=== PATIENT | male | born 1995 | race Caucasian/White ===

== ENCOUNTER 2020-12-24 17:07 | Emergency (ER) | payer OTHER, SELFPAY ==
[2020-12-24 17:20] VITALS: BP 136/81; PULSE 68; RESP 16; TEMP 37.2; O2SAT 100; BMI 24.3
--- NOTE | 2020-12-24 17:24 | DI.RAD.S_ITS ---
PROCEDURE: XR SHOULDER LT MIN 2V INDICATIONS: injured doing pushups TECHNIQUE: 3 views of the shoulder were acquired. COMPARISON: None. FINDINGS: Bones: No fractures or dislocations. No suspicious bony lesions. Visualized ribs appear intact. Soft tissues: No suspicious soft tissue calcifications. IMPRESSION: No visualized acute fracture or dislocation. However, if clinical concern and/or pain persist, short interval imaging followup in 7-10 days is recommended, as occult injury cannot be definitively excluded. Dictated by: Myra Gardiner M.D. on 12/24/2020 at 18:38 Approved by: Myra Gardiner M.D. on 12/24/2020 at 18:38
--- NOTE | 2020-12-24 19:35 | ED_ITS ---
HPI - Extremity Injury (Upper) General Chief Complaint: Extremity Injury, Upper Stated Complaint: lt shoulder pain Time Seen by Provider: 12/24/20 19:34 History of Present Illness HPI narrative: Otherwise healthy 25-year-old gentleman who presents with acute left anterior shoulder pain. He notes that about a week ago while doing a bench press he felt some pulling tearing and pain in the posterior portion of the shoulder so much so that he was not able to finish his workout. He has been trying to allow them to heal over this week in today for work needed to do a fitness test with his many pushups as he is able to complete into minutes. He began noticing pain at about 27 and continued beyond that. He comes in now with significant pain and fullness in the anterior shoulder and significantly limited range of motion. He describes no numbness and tingling down his arm no other injuries or concerns. Review of Systems Review of Systems Narrative: Remainder of complete review of systems is otherwise unremarkable except for that included in the HPI. Exam Narrative Exam Narrative: General: Alert appropriate in mild distress Respiratory: Able to speak in full sentences, no obvious respiratory distress Skin: No obvious rashes, warm and dry Neurologic: Grossly intact no obvious asymmetries or abnormalities Psych: appropriate insight and affect, cooperative Extremity: Left shoulder is examine. Arm is held in adduction for comfort. He has significant pain with any abduction and is unable to extend the arm secondary to pain. If the upper arm stabilize he has no elbow or wrist pain. He is neurovascularly intact. There is some fullness over the anterior shoulder without obvious contusion or hematoma. Initial Vital Signs Initial Vital Signs: Vital Signs Temperature 98.9 F 12/24/20 17:20 Pulse Rate 68 12/24/20 17:20 Respiratory Rate 16 12/24/20 17:20 Blood Pressure 136/81 12/24/20 17:20 Pulse Oximetry 100 12/24/20 17:20 Procedures Orthopedic Splinting/Casting Left sling: Time of procedure: 20:26 Side: left Upper Extremity Injury Location: shoulder Upper Extremity Immobilizer: sling/shoulder immobilizer Post splinting neuro exam: intact Post splinting vascular exam: intact Placed by: Nursing Course Orders Ordered: ED Orders 12/24/20 17:24 XR shoulder LT min 2V Stat Discontinued Medications Ketorolac Tromethamine (Ketorolac 30 Mg/Ml Vial) 30 mg IM NOW ONE Stop: 12/24/20 20:18 Last Admin: 12/24/20 20:21 Dose: 30 mg Documented by: Vital Signs Vital signs: Vital Signs - 8 hr 12/24/20 17:20 Temperature 98.9 F Pulse Rate 68 Respiratory Rate 16 Blood Pressure 136/81 Pulse Oximetry 100 MDM - Extremity Injury (Upper) Imaging Data X-ray shoulder: Radiologist's Impression: FINDINGS: Bones: No fractures or dislocations. No suspicious bony lesions. Visualized ribs appear intact. Soft tissues: No suspicious soft tissue calcifications. IMPRESSION: No visualized acute fracture or dislocation. However, if clinical concern and/or pain persist, short interval imaging followup in 7-10 days is recommen ded, as occult injury cannot be definitively excluded. Dictated by: Myra Gardiner M.D. on 12/24/2020 at 18:38 MDM Narrative Medical decision making narrative: 25-year-old healthy gentleman with what clinically appears to be at least a partial rotator cuff tear in the left sign. He is placed in a sling for comfort recommended ibuprofen, Tylenol ice and orthopedic follow-up for definitive treatment. Suspect he will need advanced imaging for further diagnosis. Questions are answered and he is safe for home discharge Discharge Plan Departure Patient Disposition: Home Clinical Impression: Rotator cuff disorder Qualifiers: Laterality: left Qualified Code(s): M67.912 - Unspecified disorder of synovium and tendon, left shoulder Instructions: DI for Rotator Cuff Injury Activity Restrictions/Additional Instructions: Thank you for coming in today Your exam suggests that you have torn at least part of the rotator cuff on the left side. The x-rays do not show any bony injury. You likely are going to hurt more tomorrow. Please use the sling to help reduce pain, ice to the front of the shoulder will help with the swelling and using 400 mg of ibuprofen (2 [id number] pills) and 1 Tylenol every 6 hours can be very helpful in controlling pain. Please call [facility] tomorrow so at [phone] schedule a follow-up appointment for evaluation and definitive treatment of a suspected rotator cuff tear. I hope you heal quickly and completely Referrals: Andre Gloria MD [Physician] -
[2020-12-24] MEDS: KETOROLAC 30 MG/ML VIAL IM (20:21)
[2020-12-24 20:35] VITALS: BP 130/78; PULSE 78; RESP 20; O2SAT 100
== END 2020-12-24 20:37 | disposition home or self-care (01) ==
PROVIDERS: Emergency Provider Emergency Medicine
DX: S46.092A Other injury of muscle(s) and tendon(s) of the rotator cuff of left shoulder, initial encounter (principal); X50.0XXA Overexertion from strenuous movement or load, initial encounter
CPT/HCPCS: 73030; 96372; 99283; J1885

== ENCOUNTER → 2022-01-04 13:18 | Outpatient (CLI) | payer OTHER, SELFPAY ==
--- NOTE | 2022-01-04 | DI.MRI.S_ITS ---
PROCEDURE: MR HIP LT W CON INDICATIONS: Pain left hip TECHNIQUE: After the administration of 10 mL of dilute intra-articular Gadolinium contrast, coronal STIR of the bony pelvis; coronal and oblique axial T1 spin echo with fat saturation, axial T2 fast spin echo with fat saturation, sagittal T1 spin echo with and without fat saturation of the involved hip. COMPARISON: [facility], , [place] HIP INJECTION MR/CT LT, 01/04/2022, 13:51. FINDINGS: Image quality: Excellent. Image quality: Excellent. Bones and joints: Bone marrow of the pelvic ring and proximal femurs show normal signal throughout. No intraosseous lesions or fractures. No avascular necrosis of the femoral heads. The visualized lower lumbar spine appears normally aligned. Tendons and ligaments: The gluteus medius and minimus tendons appear intact, without associated muscle atrophy. The proximal iliotibial band appears intact. The iliopsoas tendon appears intact, without adjacent bursal fluid collections. The origin of the hamstring tendon is intact at the ischial tuberosity. The direct and indirect heads of the rectus femoris muscle origin appear intact. Labrum and cartilage: No uptake of intra-articular contrast material is seen within the acetabular labrum to suggest a labral tear. No focal cartilage defect in the left hip. There is normal morphology of the femoral head and the acetabulum. Soft tissues: Visualized muscles demonstrate normal bulk and internal signal. Quadratus femoris muscle demonstrates no internal edema to suggest ischiofemoral impingement. The proximal sciatic neurovascular bundle appears intact. The included portions of the pelvis demonstrate no acute abnormality. IMPRESSION: Intact acetabular labrum. No cartilage defect is seen in the left hip. No significant abnormality is seen to account for the reported left hip pain. Dictated by: Charli Keys M.D. on 01/04/2022 at 20:37 Approved by: Charli Keys M.D. on 01/04/2022 at 20:45
--- NOTE | 2022-01-04 | DI.RAD.S_ITS ---
PROCEDURE: [place] HIP INJECTION MR/CT LT INDICATIONS: Pain left hip TECHNIQUE: The indications, alternatives, benefits, risks, and complications of the procedure were explained to the patient. Written informed consent was obtained and placed in the chart. The hip was examined fluoroscopically with the legs fixed in slight internal rotation, and a site for needle placement chosen for entry into the hip joint from an anterior approach. Care was taken to locate the common femoral artery and vein beforehand. The skin was prepped and draped in a sterile fashion, and 1% Lidocaine infiltrated from skin down to joint capsule. A spinal needle was inserted into the joint, and a small amount of iodinated contrast media injected to confirm intra-articular placement of the needle tip. This was followed by approximately 10 mL dilute solution of a gadolinium containing MR contrast agent. The needle was removed and a dressing was applied. The patient was given postprocedural instructions and sent to the MR suite for imaging. COMPARISON: None. FINDINGS: A single fluoroscopic spot image demonstrates intra-articular location of injected iodinated contrast. IMPRESSION: Successful fluoroscopically guided administration of dilute Gadolinium solution into the hip joint for MR arthrogram. Dictated by: Charli Keys M.D. on 01/04/2022 at 14:51 Approved by: Charli Keys M.D. on 01/04/2022 at 14:52
== END ==
PROVIDERS: PCP Student in an Organized Health Care Education/Training Program; Referring Provider Student in an Organized Health Care Education/Training Program; Visit Provider Student in an Organized Health Care Education/Training Program
DX: M25.552 Pain in left hip (principal)
CPT/HCPCS: 27093; 73722; 77002

== ENCOUNTER 2022-09-12 11:39 | Emergency (ER) | payer OTHER, SELFPAY ==
[2022-09-12 11:47] VITALS: BP 146/77; PULSE 73; RESP 17; TEMP 36.6; O2SAT 99; BMI 27.5
--- NOTE | 2022-09-12 12:32 | ED_ITS ---
HPI - Head Injury <Bj Menon PA-C - Last Filed: 09/12/22 12:43> General Chief complaint: Head Injury Stated complaint: sent by DAVID barcenas concussion Time Seen by Provider: 09/12/22 12:09 Source: patient Mode of arrival: Ambulatory History of Present Illness HPI Narrative: 27-year-old male with no reported past medical history presents to the ED status post a closed head injury sustained 2 days prior to arrival. Patient states that he was struck by someone's shoulder on the left frontal side of his head during rugby. Patient states that he felt like he lost consciousness for less than a second. patient denies any other injuries. Since then, patient states that he has had a generalized overall headache, nausea, increased somnolence. Patient also had some initial photophobia and phonophobia which has since resolved. Patient denies fever, chills, neck pain, neck stiffness, vomiting, chest pain, shortness of breath, cough, abdominal pain, lightheadedness, dizziness, syncope. Related Data Home Medications Medication Instructions Recorded Confirmed No Known Home Medications 09/12/22 09/12/22 Allergies Allergy/AdvReac Type Severity Reaction Status Date / Time No Known Drug Allergies Allergy Verified 09/12/22 11:49 Review of Systems <Bj Menon PA-C - Last Filed: 09/12/22 12:43> Review of Systems ROS Unobtainable: All systems reviewed & are unremarkable except as noted in HPI and below Constitutional Constitutional: Denies chills, Reports daytime sleepiness, Reports fatigue, Denies fever(s), Denies frequent falls, Reports headache(s), Denies lethargy and Denies weakness Eyes Eyes: Denies change in vision, Denies eye discharge, Denies irritation, Denies loss of vision and Reports photophobia ENT Ears, Nose, Mouth, and Throat: Denies change in voice, Denies dizziness, Reports headache(s), Denies neck pain, Denies sore throat and Denies throat swelling Cardiovascular Cardiovascular: Denies chest pain, Denies irregular heart rhythm, Denies lightheadedness, Denies palpitations, Denies dyspnea, Denies dyspnea on exertion and Denies orthopnea Respiratory Respiratory: Denies cough, Denies dyspnea, Denies dyspnea on exertion and Denies wheezing Gastrointestinal Gastrointestinal: Denies abdominal pain, Denies change in bowel habits, Denies diarrhea, Reports nausea and Denies vomiting Genitourinary Genitourinary: Denies hematuria, Denies flank pain, Denies urinary incontinence and Denies urinary urgency Musculoskeletal Musculoskeletal: Denies back pain, Denies muscle weakness, Denies neck pain, Denies numbness and Denies tingling Integumentary/Breasts Skin/Breast: Denies pruritus, Denies erythema, Denies rash and Denies wounds Neurologic Neurologic: Denies behavioral changes, Denies confusion, Denies dizziness, Denies frequent falls, Reports headache(s), Denies loss of vision, Denies numbness, Denies tingling and Denies weakness Psychiatric Psychiatric: Denies anxiety, Denies behavioral changes, Denies confusion, Denies depression, Denies homicidal ideation and Denies suicidal ideation Endocrine Endocrine: Reports fatigue, Denies flushing and Denies palpitations Hematologic/Lymphatic Hematologic/Lymphatic: Denies easy bruising Allergic/Immunologic Allergic/Immunologic: Denies urticaria, Denies throat swelling and Denies wheezing Patient History <Bj Menon PA-C - Last Filed: 09/12/22 12:43> Social History Smoking Status: Never smoker Smoking Status: Never smoker alcohol intake frequency: other Substance Use Type: does not use Exam <Bj Menon PA-C - Last Filed: 09/12/22 12:43> Narrative Exam Narrative: Const General:?cooperative, healthy appearing and comfortable [facility] Head:?normal to inspection; left front forehead somewhat tender to palpation, however no skull depressions, hematoma Ears:?hearing grossly normal bilaterally Nose:?external nose normal Face and sinus:?normal facial exam and sinuses nontender Mouth:?oral mucosae normal Throat:?posterior oropharynx normal Eyes General:?appearance normal, both eyes and all related structures Neck Neck:?normal visual inspection and no lymphadenopathy noted Resp Effort & Inspection:?normal respiratory effort Auscultation:?clear to auscultation bilaterally Cardio Rate:?regular rate Rhythm:?regular rhythm Neuro General:?patient alert, patient awake and patient oriented x3; PERRLA; gait is normal; CN 1 through 12 intact bilaterally Initial Vital Signs Initial Vital Signs: Vital Signs Temperature 98 F 09/12/22 11:47 Pulse Rate 73 09/12/22 11:47 Respiratory Rate 17 09/12/22 11:47 Blood Pressure 146/77 H 09/12/22 11:47 Pulse Oximetry 99 09/12/22 11:47 Oxygen Delivery Method Room Air 09/12/22 11:47 <Ridge Blackburn DO - Last Filed: 09/12/22 13:01> Initial Vital Signs Initial Vital Signs: Vital Signs Temperature 98 F 09/12/22 11:47 Pulse Rate 73 09/12/22 11:47 Respiratory Rate 17 09/12/22 11:47 Blood Pressure 146/77 H 09/12/22 11:47 Pulse Oximetry 99 09/12/22 11:47 Oxygen Delivery Method Room Air 09/12/22 11:47 Course <Bj Menon PA-C - Last Filed: 09/12/22 12:43> Vital Signs Vital signs: Vital Signs - 8 hr 09/12/22 11:47 09/12/22 12:46 Temperature 98 F Pulse Rate 73 75 Respiratory Rate 17 Blood Pressure 146/77 H 142/61 H Pulse Oximetry 99 98 Oxygen Delivery Method Room Air Room Air <Ridge Blackburn DO - Last Filed: 09/12/22 13:01> Vital Signs Vital signs: Vital Signs - 8 hr 09/12/22 11:47 09/12/22 12:46 Temperature 98 F Pulse Rate 73 75 Respiratory Rate 17 Blood Pressure 146/77 H 142/61 H Pulse Oximetry 99 98 Oxygen Delivery Method Room Air Room Air MDM - Head Injury <MITCH Quiros Last Filed: 09/12/22 12:43> MDM Narrative Medical decision making narrative: 27-year-old male with no reported past medical history presents to the ED status post a closed head injury sustained 2 days prior to arrival. physical exam is reassuring and patient appears neurologically intact. Patient's symptoms likely due to a concussion. Discussed concussion and associated symptoms with patient. recommend cognitive and physical rest, prompt PCP follow-up to continue monitoring symptoms. Patient agrees to follow-up with his PCP as soon as possible. Patient declined Zofran, will follow-up with PCP if he continues to feel nauseous. ED return precautions were discussed with patient. Patient verbalized understanding. Discharge Plan Departure Patient Disposition: Home Clinical Impression: Concussion Instructions: Concussion, DI for Closed Head Injury Activity Restrictions/Additional Instructions: You were evaluated in the ED today for a head injury. Your physical exam is reassuring, you appear neurologically intact. Your symptoms are consistent with a concussion. It is common to experience headaches, nausea, few episodes of vomiting, sensitivity to light and sound, blurry vision, sleepiness, fatigue, depression, agitation. You may take Tylenol for the headaches. We recommend cognitive and physical rest to best recover from a concussion. This includes avoiding strenuous physical activities, use of phones, laptops, computers, [place]. please follow-up with your PCP as soon as possible for further monitoring of your symptoms. Return to the ED if your symptoms worsen, you are persistently vomiting, your confused. Prescriptions: No Action No Known Home Medications Referrals: Ridge Curiel [Primary Care Provider] - Stand Alone Forms: Patient Portal/API, Work Release Note <Ridge Blackburn DO - Last Filed: 09/12/22 13:01> Cosign ED Attending Cosignature Attestation: Dr Blackburn Co-Sign Statement: I was available for consultation during this patient's emergency department visit. This chart is signed by myself for administrative purposes only. I did not have direct contact with this patient during this visit. They were seen independently by the APC.
[2022-09-12 12:46] VITALS: BP 142/61; PULSE 75; O2SAT 98
== END 2022-09-12 12:47 | disposition home or self-care (01) ==
PROVIDERS: Emergency Provider Student in an Organized Health Care Education/Training Program; PCP Student in an Organized Health Care Education/Training Program
DX: S06.0XAA Concussion with loss of consciousness status unknown, initial encounter (principal); W50.0XXA Accidental hit or strike by another person, initial encounter
CPT/HCPCS: 99282; 99283

== ENCOUNTER 2023-01-12 21:36 | Emergency (ER) | payer OTHER, SELFPAY ==
[2023-01-12] VITALS (7 sets, daily range): BP systolic 129–136; BP diastolic 73–95; PULSE 74–79; RESP 20; TEMP 37.1; O2SAT 98–100
--- NOTE | 2023-01-12 21:47 | ED_ITS ---
HPI - General Adult General Chief complaint: Allergic Reaction Stated complaint: bee sting - reaction Time Seen by Provider: 01/12/23 21:46 Source: patient Mode of arrival: Ambulatory Limitations: no limitations History of Present Illness HPI narrative: Patient is a 27-year-old male who prior to arrival was stung on his left hand. He states that he is never been stung before. Since that time he is developed what he thinks his some problems swallowing. No vomiting. He does have some swelling to the area around his left hand. No problems breathing. Related Data Home Medications Medication Instructions Recorded Confirmed No Known Home Medications 09/12/22 09/12/22 Allergies Allergy/AdvReac Type Severity Reaction Status Date / Time No Known Drug Allergies Allergy Verified 09/12/22 11:49 Review of Systems Constitutional Constitutional: Reports system reviewed and no additional complaints, except as documented Integumentary/Breasts Skin/Breast: Reports system reviewed and no additional complaints, except as documented Neurologic Neurologic: Reports system reviewed and no additional complaints, except as documented Patient History Social History Smoking Status: Never smoker Smoking Status: Never smoker alcohol intake frequency: other Substance Use Type: does not use Exam Initial Vital Signs Initial Vital Signs: Vital Signs Temperature 98.8 F 01/12/23 21:46 Pulse Rate 79 01/12/23 21:46 Respiratory Rate 20 01/12/23 21:46 Blood Pressure 136/91 H 01/12/23 21:46 Pulse Oximetry 99 01/12/23 21:46 Oxygen Delivery Method Room Air 01/12/23 21:46 Const General: cooperative, comfortable and No ill appearing [facility] Head: normal to inspection and normocephalic Mouth: oral mucosae normal and lip normal Throat: posterior oropharynx normal GI Inspection: normal to inspection and non-distended Skin Other: No urticaria noted Neuro General: patient alert, patient awake and moves all extremities Extrem General: capillary refill normal Course Orders Ordered: Discontinued Medications Diphenhydramine HCl (Diphenhydramine 50 Mg/Ml Vial) 25 mg IV NOW ONE Stop: 01/12/23 21:48 Last Admin: 01/12/23 21:55 Dose: 25 mg Documented By: JENNIFER Methylprednisolone (Methylprednisolone 125 Mg/2 Ml Vial) 125 mg IV NOW ONE Stop: 01/12/23 21:48 Last Admin: 01/12/23 21:55 Dose: 125 mg Documented By: JENNIFER Vital Signs Vital signs: Vital Signs - 8 hr 01/12/23 21:48 01/12/23 21:49 01/12/23 21:49 Temperature Pulse Rate 79 Respiratory Rate Blood Pressure 136/91 H Pulse Oximetry 99 99 Oxygen Delivery Method 01/12/23 22:00 01/12/23 22:00 01/12/23 21:46 Temperature 98.8 F Pulse Rate 78 79 Respiratory Rate 20 Blood Pressure 135/75 136/91 H Pulse Oximetry 100 99 Oxygen Delivery Method Room Air 01/12/23 22:30 01/12/23 22:30 01/12/23 22:59 Temperature Pulse Rate 74 74 Respiratory Rate Blood Pressure 129/73 Pulse Oximetry 100 98 Oxygen Delivery Method Room Air Room Air 01/12/23 23:00 Temperature Pulse Rate Respiratory Rate Blood Pressure 129/95 H Pulse Oximetry Oxygen Delivery Method Medical Decision Making MDM Narrative Medical decision making narrative: Patient does have some swelling to his left hand but no visible mucosal involvement noted. Was given steroids and Benadryl. His symptoms completely resolved. Is observed for period of time without any progression of the disease. Will discharge patient home with instructions he can take Benadryl if needed. Expressed understanding and agreement. Discharge Plan Departure Patient Disposition: Home Clinical Impression: Bee sting reaction Instructions: DI for Insect Bites and Stings Activity Restrictions/Additional Instructions: You can take 25 mg of Benadryl every 6 hours as needed. Return to the emergency department for new or worsening symptoms. Prescriptions: No Action No Known Home Medications Referrals: Ridge Curiel [Primary Care Provider] - Stand Alone Forms: Patient Portal/API
[2023-01-12] MEDS: diphenhydrAMINE 50 MG/ML VIAL 25 MG IV (21:55)
[2023-01-12] MEDS: methylPREDNISolone 125 MG/2 ML VIAL IV (21:55)
== END 2023-01-12 23:07 | disposition home or self-care (01) ==
PROVIDERS: Emergency Provider Emergency Medicine; PCP Student in an Organized Health Care Education/Training Program
DX: T63.441A Toxic effect of venom of bees, accidental (unintentional), initial encounter (principal); R13.10 Dysphagia, unspecified
CPT/HCPCS: 96374; 96375; 99283; 99284; J1200; J2930

== ENCOUNTER 2023-05-04 07:29 | Emergency (ER) | payer OTHER, SELFPAY ==
[2023-05-04 07:34] VITALS: BP 140/85; PULSE 89; RESP 18; TEMP 36.7; O2SAT 99; BMI 24.2
--- NOTE | 2023-05-04 07:46 | ED.SKABFB ---
HPI - Skin/Abscess/Foreign Bdy General Chief complaint: Skin/Abscess/Foreign Body Stated complaint: Lump in Left Breast, painful Time Seen by Provider: 05/04/23 07:45 Source: patient Mode of arrival: Family Vehicle Limitations: no limitations History of Present Illness HPI narrative: Patient here with complaints of left areola/nipple pain and redness. This started last night. They did take a picture and presented it here. Today it is less red. But however welding machine tender/painful. No discharge. No injury to this area. No piercing. No plaquing of the hair. No family history of breast cancer or disease. No discharge from the nipple. Related Data Previous Rx's Medication Instructions Recorded doxycycline monohydrate 100 mg 100 mg PO BID #14 caps 05/04/23 capsule Allergies Allergy/AdvReac Type Severity Reaction Status Date / Time No Known Drug Allergies Allergy Verified 05/04/23 07:40 Review of Systems Review of Systems Narrative: GENERAL: negative chills, fatigue, malaise, fever, sweats. HEENT: negative sinus pain, ear pain, sore throat RESPIRATORY: negative dyspnea, cough CARDIOVASCULAR: negative chest pain, palpitations GASTROINTESTINAL: negative nausea, vomiting, abdominal pain : negative dysuria, frequency, hematuria MUSCULOSKELETAL: negative muscle or bony pain SKIN: negative rash, positive skin lesions NEUROLOGIC: negative weakness, numbness ROS Unobtainable: All systems reviewed & are unremarkable except as noted in HPI and below Patient History Social History Smoking Status: Never smoker Smoking Status: Never smoker tobacco type: vaping alcohol intake frequency: holidays/special occasions only Substance Use Type: does not use Exam Narrative Exam Narrative: GENERAL: in no distress, not toxic not dyspneic HEAD: Normocephalic. EYES: Pupils equal round ENT: Mucous membranes moist. NECK: Trachea midline. NEURO: AOx4. SKIN: Warm and dry, examination left breast, grossly symmetric to the right breast. There is tenderness to the 12:00 p.m. to the 3 o'clock position, this is at the areola. There is mild mild erythema. No induration. No fluctuance. No nipple discharge. No axillary lymphadenopathy. No other mass or lumps palpable on the left breast. PSYCH: Not anxious, is cooperative Initial Vital Signs Initial Vital Signs: Vital Signs Temperature 98.1 F 05/04/23 07:34 Pulse Rate 89 05/04/23 07:34 Respiratory Rate 18 05/04/23 07:34 Blood Pressure 140/85 05/04/23 07:34 Pulse Oximetry 99 05/04/23 07:34 Oxygen Delivery Method Room Air 05/04/23 07:34 Course Orders Ordered: Discontinued Medications Doxycycline Hyclate (Doxycycline Hyclate 100 Mg Tablet) 100 mg PO NOW ONE Stop: 05/04/23 07:46 Last Admin: 05/04/23 07:57 Dose: 100 mg Documented By: NUNO Ibuprofen (Ibuprofen 400 Mg Tablet) 800 mg PO NOW ONE Stop: 05/04/23 07:46 Last Admin: 05/04/23 07:58 Dose: 800 mg Documented By: NUNO Vital Signs Vital signs: Vital Signs - 8 hr 05/04/23 07:34 Temperature 98.1 F Pulse Rate 89 Respiratory Rate 18 Blood Pressure 140/85 Pulse Oximetry 99 Oxygen Delivery Method Room Air MDM - Skin/Abscess/Foreign Bdy MDM Narrative Medical decision making narrative: Patient 82-year-old female history of diabetes, hypertension, anemia with recent blood transfusion presents today with vomiting of bright red blood. She reports that she woke up around 330 this morning she did not feel very good she proceeded to vomit a couple of times with bright red blood and some blood clots. She reports that she is had some dark stool as well. She is taking aspirin daily she has no abdominal pain. She denies any chest pain or shortness of breath. EMS reports that her blood pressure initially was in the 140s and has decreased slightly to the 110s but she is not tachycardic. She is covered with bright-red blood all over the front of her Records from [facility] April 24 have been reviewed. At that time she went to the ED concern for CVA she was found to be weak hyperglycemic and facial droop. She however was found to be anemic with a hemoglobin of 6.8 and hematocrit 21.2 she would a BUN of 66 and a creatinine of 1.3. She was boarding in the ED transfused to units of blood. Surgery was contacted but stated given her advanced age unlikely to [employer] administrator the patient later decided to go home she would repeat CBC and was discharged with a hemoglobin of 9.8 After history and exam no laboratory studies imaging indicated at this time. Approved for outpatient ultrasound or mammography. Doxycycline and ibuprofen ordered. MDM CC: Left nipple pain Complicating co-morbidities: None Data collected from: Patient Medical records reviewed: No previous visit for this complaint Differential considered: Includes but not limited to mastitis/cellulitis/abscess/carcinoma Exam documented above, pertinent findings include: Tender areola Lab Test results independently reviewed as above. Pertinent findings: None indicated Treatments: Doxycycline ibuprofen Re-evaluations: Reviewed with patient physical findings. Does agree understand can have outpatient imaging done. Agrees with prescription antibiotics. Return precautions reviewed. He desires discharge home Discussion: Appropriate for discharge home. Exam is reassuring. Patient may have outpatient imaging if needed. Clinically mastitis. Uncertain source at this time. Doxycycline has been started. He does have good follow up. Return precautions reviewed. He desires discharge home Diagnosis: Mastitis Discharge Plan Departure Patient Disposition: Home Clinical Impression: Acute mastitis of left breast Instructions: DI for Mastitis Activity Restrictions/Additional Instructions: Please contact your primary care provider to schedule for outpatient mammogram or ultrasound. Prescription medication antibiotics have been sent to your pharmacy to continue. Please do read literature regarding mastitis. May continue ibuprofen for pain. May use warm compresses 20 minutes at a time as needed for pain or swelling. Return if worse if any questions or concerns Prescriptions: New doxycycline monohydrate 100 mg capsule 100 mg PO BID Qty: 14 0RF Referrals: Ridge Curiel [Primary Care Provider] - Stand Alone Forms: Patient Portal/API
[2023-05-04] MEDS: DOXYCYCLINE HYCLATE 100 MG TABLET PO (07:57)
[2023-05-04] MEDS: IBUPROFEN 400 MG TABLET 800 MG PO (07:58)
== END 2023-05-04 08:10 | disposition home or self-care (01) ==
PROVIDERS: Emergency Provider Emergency Medicine; PCP Student in an Organized Health Care Education/Training Program
DX: N61.0 Mastitis without abscess (principal)
CPT/HCPCS: 99283

== ENCOUNTER 2024-03-30 12:27 | Emergency (ER) | payer OTHER, SELFPAY ==
[2024-03-30 12:30] VITALS: BP 126/78; PULSE 81; RESP 16; TEMP 36.7; O2SAT 97; BMI 24.9
[2024-03-30] MEDS: FLUORESCEIN 1 MG STRIP EYE-LEFT (12:55)
[2024-03-30] MEDS: PROPARACAINE 0.5% OPHTH SOL 1 DROPS EYE-LEFT (12:55)
--- NOTE | 2024-03-30 14:03 | ED_ITS ---
HPI - Eye Problem <David Vann PA-C - Last Filed: 03/30/24 14:14> General Chief complaint: Eye Problems Stated complaint: left eye injury Time Seen by Provider: 03/30/24 12:36 Source: patient Mode of arrival: Ambulatory History of Present Illness HPI Narrative: This patient is a 28-year-old male that presents today for a scratch to the left lower area of the left eye. This was apparently accidentally done by his dog. This apparently occurred this morning prior to his arrival. He denies any previous injury to the eye. No treatments have been tried for this. His tetanus status is up-to-date. Patient denies foreign body sensation. He did not take Tylenol or ibuprofen or Aleve prior to his arrival. He denies any drainage from the eye, pain with extra-ocular movements, retro-orbital pain or periorbital pain. Related Data Previous Rx's Medication Instructions Recorded doxycycline monohydrate 100 mg 100 mg PO BID #14 caps 05/04/23 capsule ketorolac 0.5 % eye drops 2 drp EYE-LEFT Q6H PRN pain 5 days 03/30/24 #10 mL moxifloxacin 0.5 % eye drops 1 drp EYE-LEFT TID 7 days #3 mL 03/30/24 moxifloxacin 0.5 % eye drops 1 drp ophthalmic (eye) TID 7 days 03/30/24 #3 mL Allergies Allergy/AdvReac Type Severity Reaction Status Date / Time No Known Drug Allergies Allergy Verified 03/30/24 12:30 Review of Systems <David Vann PA-C - Last Filed: 03/30/24 14:14> Review of Systems Narrative: General: See HPI HEENT: See HPI All other review of systems have been reviewed and ultimately negative unless otherwise stated in the HPI. Patient History <David Vann PA-C - Last Filed: 03/30/24 14:14> Social History Smoking Status: Never smoker Smoking Status: Never smoker tobacco type: vaping alcohol intake frequency: holidays/special occasions only Substance Use Type: does not use Exam <David Vann PA-C - Last Filed: 03/30/24 14:14> Initial Vital Signs Initial Vital Signs: Vital Signs Temperature 98.0 F 03/30/24 12:30 Pulse Rate 81 03/30/24 12:30 Respiratory Rate 16 03/30/24 12:30 Blood Pressure 126/78 03/30/24 12:30 Pulse Oximetry 97 03/30/24 12:30 Oxygen Delivery Method Room Air 03/30/24 12:30 Const General: cooperative, healthy appearing, comfortable, well developed and well groomed [facility] Head: normal to inspection, normocephalic and atraumatic Ears: hearing grossly normal bilaterally and external ears normal Nose: external nose normal and nares normal Face and sinus: normal facial exam Mouth: oral mucosae normal Eyes General: Yes appearance normal, both eyes and all related structures Visual Montano: normal visual montano by confrontation Alignment and Position: alignment normal and position normal Periorbital: periorbital findings normal Eyelids: eyelids normal Conjunctivae: conjunctivae normal Sclera: scleral abnormality (Abrasion noted at the 5 o'clock position) Cornea: corneas normal and fluorescein used Pupils: PERRL, normal by confrontation and accommodation normal EOM: EOM intact bilaterally Neck Neck: normal visual inspection, full ROM and no meningeal signs Resp Effort & Inspection: normal respiratory effort and able to speak in complete sentences Auscultation: clear to auscultation bilaterally Cardio Rate: regular rate Rhythm: regular rhythm Heart Sounds: S1 normal and S2 normal Back/Spine/Pelvis Back: normal to inspection Skin General: no rashes or lesions noted, elasticity normal and turgor normal Neuro General: patient alert, patient awake, patient oriented x3, gait normal, moves all extremities and CN's II-XI intact bilaterally Extrem General: normal to inspection, full ROM and capillary refill normal Psych Appearance: grossly normal and well kempt <Asuncion Cantor DO - Last Filed: 03/31/24 07:35> Initial Vital Signs Initial Vital Signs: Vital Signs Temperature 98.0 F 03/30/24 12:30 Pulse Rate 81 03/30/24 12:30 Respiratory Rate 16 03/30/24 12:30 Blood Pressure 126/78 03/30/24 12:30 Pulse Oximetry 97 03/30/24 12:30 Oxygen Delivery Method Room Air 03/30/24 12:30 Course <David Vann PA-C - Last Filed: 03/30/24 14:14> Course Course Narrative: Patient was seen and examined. Proparacaine was placed into the left eye. Visual acuity was performed by nursing staff. Please refer to their notation regarding these results. The patient then underwent fluorescein staining which revealed the abrasion at the sclera on the left. There was no corneal invo lvement. Patient was notified of the negative findings. The eye was then irrigated thoroughly by nursing staff. Patient was prepped for discharge home. He will be placed on moxifloxacin drops as well as ketorolac eyedrops for any breakthrough pain. Patient understands the treatment plan. No additional questions at the time of discharge and he will follow up as requested. Orders Ordered: Discontinued Medications Fluorescein Sodium (Fluorescein 1 Mg Strip) 1 mg EYE-LEFT NOW ONE Stop: 03/30/24 12:35 Last Admin: 03/30/24 12:55 Dose: 1 mg Documented By: SPF Proparacaine HCl (Proparacaine 0.5% Ophth [place]) 1 drops EYE-LEFT PRN PRN PRN Reason: Pain, Moderate (4-6) Last Admin: 03/30/24 12:55 Dose: 1 drop Documented By: SPF Vital Signs Vital signs: Vital Signs - 8 hr 03/30/24 12:30 Temperature 98.0 F Pulse Rate 81 Respiratory Rate 16 Blood Pressure 126/78 Pulse Oximetry 97 Oxygen Delivery Method Room Air <Asuncion Cantor DO - Last Filed: 03/31/24 07:35> Orders Ordered: Discontinued Medications Fluorescein Sodium (Fluorescein 1 Mg Strip) 1 mg EYE-LEFT NOW ONE Stop: 03/30/24 12:35 Last Admin: 03/30/24 12:55 Dose: 1 mg Documented By: SPF Proparacaine HCl (Proparacaine 0.5% Ophth [place]) 1 drops EYE-LEFT PRN PRN PRN Reason: Pain, Moderate (4-6) Last Admin: 03/30/24 12:55 Dose: 1 drop Documented By: SPF Vital Signs Vital signs: Vital Signs - 8 hr 03/30/24 12:30 Temperature 98.0 F Pulse Rate 81 Respiratory Rate 16 Blood Pressure 126/78 Pulse Oximetry 97 Oxygen Delivery Method Room Air MDM - Eye Problem <David Vann PA-C - Last Filed: 03/30/24 14:14> Differential Diagnosis Differential diagnosis: Likely corneal abrasion, acute iritis, corneal ulcer, ruptured globe and other (Scleral abrasion) Medical Records Attestation: I reviewed the patient's medical records. MDM Narrative Medical decision making narrative: At this time, the patient has no other involvement of the eye from an abrasion standpoint except for the sclera at the 5 o'clock position. There is no visible foreign body. The patient does not appear to have a ruptured globe. I do not believe he has some type of glaucoma. The patient will be started on the medications as previously stated. There are no additional questions at the time of discharge and he will follow up as requested. Discharge Plan Departure Patient Disposition: Home Clinical Impression: Abrasion of eye Qualifiers: Encounter type: initial encounter Laterality: left Qualified Code(s): S05.8X2A - Other injuries of left eye and orbit, initial encounter Instructions: DI for Eye Pain Activity Restrictions/Additional Instructions: Start the medications today as prescribed Follow up your PCP next week as a recheck Return here for any new, emergent conditions Prescriptions: New moxifloxacin 0.5 % drops 1 drp ophthalmic (eye) TID 7 Days Qty: 3 0RF moxifloxacin 0.5 % drops 1 drp EYE-LEFT TID 7 Days Qty: 3 0RF ketorolac 0.5 % drops 2 drp EYE-LEFT Q6H PRN (Reason: pain) 5 Days Qty: 10 0RF No Action doxycycline monohydrate 100 mg capsule 100 mg PO BID Qty: 14 0RF Referrals: [facility]Tu [Primary Care Provider] - Stand Alone Forms: Patient Portal/API ED Sign-out <Asuncion Cantor DO - Last Filed: 03/31/24 07:35> Cosign ED Attending Cosjose roberto Attestation: I was available for consultation.
[2024-03-30 14:08] VITALS: BP 139/87; PULSE 72; RESP 16; O2SAT 97
== END 2024-03-30 14:23 | disposition home or self-care (01) ==
PROVIDERS: Emergency Provider Physician Assistant
DX: S05.8X2A Other injuries of left eye and orbit, initial encounter (principal); X58.XXXA Exposure to other specified factors, initial encounter
CPT/HCPCS: 99282